=== PATIENT | male | born 1985 | race Caucasian/White ===

== ENCOUNTER 2016-10-05 10:18 | Emergency (ER) | payer MEDICAID, OTHER ==
--- NOTE | 2016-10-05 10:35 | EDPHY ---
H & P Time Seen by Provider: 10/05/16 10:20 HPI/ROS: CHIEF COMPLAINT: Substance abuse, hallucinating HISTORY OF PRESENT ILLNESS: 31-year-old male presents to the emergency department by ambulance with complaints of visual hallucinations. The patient admits to using Adderall and Ambien over this past weekend and he was hallucinating that his car had become a "transformer" and he had visions of "velvet covering my arms." The patient states "I am a full on drug addict." He has used cocaine in the past. He has gone through treatment multiple times. He was talking to his mother today reporting the hallucinations and she is in [place] and called the police and EMS brought him to the emergency department for evaluation. Denies chest pain or difficulty breathing. Denies abdominal pain. Denies neck or back pain. Denies any reported trauma. He denies suicidal ideation. He does state that he is profoundly depressed and does not get out of bed in the morning. He denies homicidal ideation. REVIEW OF SYSTEMS: Constitutional: No fever, no chills. Eyes: No double or blurry vision. ENT: No sore throat. Respiratory: No cough, no shortness of breath. Cardiac: No chest pain. Gastrointestinal: No abdominal pain, vomiting or diarrhea. Genitourinary: No dysuria. Musculoskeletal: No neck or back pain. Skin: No rashes. Neurological: No headache. Past Medical/Surgical History: Substance abuse Social History: Single. Originally from [place] Smoking Status: Never smoked Physical Exam: General Appearance: Alert, no distress. Eyes: Pupils equal and round. Extraocular motions are all intact. ENT: Mouth: Mucous membranes moist. Respiratory: No wheezing, rhonchi, or rales, lungs are clear to auscultation. Cardiovascular: Regular rate and rhythm. Tachycardic Gastrointestinal: Abdomen is soft and nontender, no masses, no rebound or guarding, bowel sounds normal. Neurological: Alert and oriented x 2, confused on time. cranial nerves II through XII grossly intact Skin: Warm and dry, no rashes. Musculoskeletal: Nontender to palpate along the cervical, thoracic or lumbar spine. Neck is supple. Extremities: Full range of motion and no peripheral edema. Psychiatric: Patient is oriented X 2, there is no agitation. Constitutional: Initial Vital Signs Temperature (C) 37 C 10/05/16 10:18 Heart Rate 92 03/15/17 10:18 Respiratory Rate 18 10/05/16 10:18 Blood Pressure 138/85 H 10/05/16 10:18 O2 Sat (%) 98 10/05/16 10:18 O2 Delivery Mode Room Air Allergies/Adverse Reactions: No Known Allergies Allergy (Unverified 06/05/14 19:06) Home Medications: Medication Instructions Recorded DULoxetine [Cymbalta 30 MG (*)] 30 mg PO DAILY #7 cap 02/25/15 Venlafaxine Xr [Effexor Xr 37.5MG 37.5 mg PO BID #60 cap 02/25/15 (*)] Medical Decision Making ED Course/Re-evaluation: 31-year-old male presents to the emergency department with hallucinations in feeling depressed. He is not suicidal homicidal. He presented voluntarily after his mother called EMS. I do not think imaging studies are necessary. The patient has no visible signs of trauma. He reports no headache. The patient was monitored for several hours in the emergency department. He continues to deny suicidal homicidal ideation. Does admit to being a drug addict and feels that he has enough resources. He declined mental health evaluation. He has been talking with his psychiatrist since being here in the emergency department. He has a scheduled appointment to see his psychiatrist. He declined mental health evaluation is requesting to be discharged. He is no longer hallucinating. I discouraged from continuing to use drugs. He was given referral to the [facility]. I feel that he is safe for discharge. Feels comfortable being discharged home. Differential Diagnosis: Altered mental status including but not limited to hypoglycemia, infectious process, electrolyte abnormality, head injury and intoxicants. - Data Points Laboratory Results: Laboratory Results 10/05/16 10:09 10/05/16 10:09 10/05/16 10/05/16 10/05/16 11:09 10:09 10:09 WBC 9.41 10^3/uL 10^3/uL (3.80-9.50) RBC 5.53 10^6/uL 10^6/uL (4.40-6.38) Hgb 16.7 g/dL g/dL (13.7-17.5) Hct 47.1 % % (40.0-51.0) MCV 85.2 fL fL (81.5-99.8) MCH 30.2 pg pg (27.9-34.1) MCHC 35.5 g/dL g/dL (32.4-36.7) RDW 12.0 % % (11.5-15.2) Plt Count 259 10^3/uL 10^3/uL (150-400) MPV 10.2 fL fL (8.7-11.7) Neut % (Auto) 82.4 % H % (39.3-74.2) Lymph % (Auto) 12.8 % L % (15.0-45.0) [place] % (Auto) 3.9 % L % (4.5-13.0) Eos % (Auto) 0.2 % L % (0.6-7.6) Baso % (Auto) 0.5 % % (0.3-1.7) Nucleat RBC Rel Count 0.0 % % (0.0-0.2) Absolute Neuts (auto) 7.75 10^3/uL H 10^3/uL (1.70-6.50) Absolute Lymphs (auto) 1.20 10^3/uL 10^3/uL (1.00-3.00) Absolute Monos (auto) 0.37 10^3/uL 10^3/uL (0.30-0.80) Absolute Eos (auto) 0.02 10^3/uL L 10^3/uL (0.03-0.40) Absolute Basos (auto) 0.05 10^3/uL 10^3/uL (0.02-0.10) Absolute Nucleated RBC 0.00 10^3/uL 10^3/uL (0-0.01) Immature Gran % 0.2 % % (0.0-1.1) Immature Gran # 0.02 10^3/uL 10^3/uL (0.00-0.10) Sodium 138 mEq/L mEq/L (134-144) Potassium 4.4 mEq/L mEq/L (3.5-5.2) Chloride 102 mEq/L mEq/L (97-110) Carbon Dioxide 22 mEq/l mEq/l (22-31) Anion Gap 14 mEq/L mEq/L (8-16) BUN 13 mg/dL mg/dL (7-23) Creatinine 0.8 mg/dL mg/dL (0.7-1.3) Estimated GFR > 60 Glucose 120 mg/dL H mg/dL (70-100) Calcium 10.3 mg/dL mg/dL (8.5-10.4) TSH 1.230 uIU/mL uIU/mL (0.465-4.680) Urine Opiates Screen NEGATIVE (NEGATIVE) Urine Barbiturates NEGATIVE (NEGATIVE) Ur Phencyclidine Scrn NEGATIVE (NEGATIVE) Ur Amphetamine Screen NON-NEGATIVE H (NEGATIVE) U Benzodiazepines Scrn NEGATIVE (NEGATIVE) Urine Cocaine Screen NEGATIVE (NEGATIVE) U Marijuana (THC) Screen NEGATIVE (NEGATIVE) Ethyl Alcohol < 10 mg/dL mg/dL (0-10) Departure - Departure Disposition: Home, Routine, Self-Care Clinical Impression: Substance abuse, Hallucination Condition: Good Instructions: Polysubstance Abuse (ED), Hallucinations (ED) Additional Instructions: You declined mental health evaluation. Please return to the emergency department if you feel suicidal, homicidal, developed recurring depression or hallucinations or if you feel worse in any way. Referrals: [facility] [Outside] - As per Instructions
[2016-10-05 10:37] LABS: % IMMATURE GRANULYOCYTES 0.2 % (0.0-1.1); ABSOLUTE IMMATURE GRANULOCYTES 0.02 10^3/uL (0.00-0.10); ADD DIFF? NO; ADD MORPH? NO; ADD SCAN? NO; ATYPICAL LYMPHOCYTE FLAG 0 (0-99); FRAGMENT RBC FLAG 0 (0-99); HEMATOCRIT 47.1 % (40.0-51.0); HEMOGLOBIN 16.7 g/dL (13.7-17.5); LEFT SHIFT FLG 0 (0-99); LIPEMIA HEMOLYSIS FLAG 90 (0-99); MEAN CELL HEMOGLOBIN 30.2 pg (27.9-34.1); MEAN CELL HEMOGLOBIN CONCENTR. 35.5 g/dL (32.4-36.7); MEAN CELL VOLUME 85.2 fL (81.5-99.8); MEAN PLATELET VOLUME 10.2 fL (8.7-11.7); PLATELET CLUMPS FLAG 0 (0-99); PLATELET COUNT 259 10^3/uL (150-400); RED BLOOD CELL COUNT 5.53 10^6/uL (4.40-6.38)
[2016-10-05 10:55] LABS: ANION GAP 14 mEq/L (8-16); CALCIUM 10.3 mg/dL (8.5-10.4); CARBON DIOXIDE 22 mEq/l (22-31); CHLORIDE 102 mEq/L (97-110); CREATININE 0.8 mg/dL (0.7-1.3); ETHANOL SERUM < 10 mg/dL (0-10); GLOMERULAR FILTRATION RATE > 60; GLUCOSE 120 mg/dL (70-100); POTASSIUM 4.4 mEq/L (3.5-5.2); SODIUM 138 mEq/L (134-144)
[2016-10-05 11:08] VITALS: BP 138/85; PULSE 92; RESP 18; TEMP 98.6; O2SAT 98
== END 2016-10-05 16:08 | disposition home or self-care (01) ==
LOC: EDUNIT#
DX: F19.10 Other psychoactive substance abuse, uncomplicated (principal); R44.3 Hallucinations, unspecified
CPT/HCPCS: 80305; G0480